=== PATIENT | male | born 1995 | race Caucasian/White ===

== ENCOUNTER 2025-07-02 19:23 | Emergency (ER) | payer OTHER, SELFPAY ==
[2025-07-02 19:35] VITALS: BP 129/90
[2025-07-02 20:10] LABS: Hematocrit 43.0 % (39.0-52.0); Hemoglobin 14.2 g/dL (13.0-18.0); Mean Corp Hgb Conc. 33.0 g/dL (33.0-37.0); Mean Corpuscular Volume 90.3 fL (80.0-94.0); Nucleated Red Blood Cells % 0 % (-); Platelet Count 252 10^3/uL (130-400); Red Cell Dist. Width 11.9 % (11.5-14.5)
[2025-07-02 20:24] LABS: ALT (SGPT) 20 U/L (0-50); AST (SGOT) 22 U/L (17-59); Albumin 4.5 g/dl (3.5-5.0); Alkaline Phosphatase 62 U/L (38-126); Blood Urea Nitrogen 13 mg/dl (9-20); Calcium 9.4 mg/dl (8.4-10.2); Carbon Dioxide 27 mmol/L (22-30); Chloride 106 mmol/L (98-107); Glucose 95 mg/dl (70-99); Potassium 4.0 mmol/L (3.5-5.1); Sodium 139 mmol/L (135-145); Total Protein 7.7 g/dl (6.3-8.2); eGFR > 60.00
[2025-07-02 20:35] LABS: Troponin I < 0.012 ng/ml
[2025-07-02 21:36] VITALS: BP 132/77
--- NOTE | 2025-07-02 23:02 | ED.GENMED ---
History of Present Illness
General
Chief Complaint: Dizziness
Source: patient
Exam Limitations: none
Time Seen by Provider: 07/02/25 21:53
Nursing documentation reviewed up to this point in time: agreed with
History of Present Illness
History of Present Illness:
Patient to emergency department with complaint of dizziness. Symptoms started approximately 2-1/2 weeks ago. States the dizziness has slowly improved but is still present. He was seen last week at urgent care and states his ears were flushed to
remove wax. He states he saw no improvement in his dizziness with that procedure. He denies fever chills nausea vomiting diarrhea no headache no vision changes. No prior history of same. Brought self to the emergency department for evaluation.
Past History
Past History
ED Past Medical History: None
ED Past Surgical History: None
Social History
Tobacco: Former smoker
Alcohol: None
Drug: None
Personal: Single
Living: with family
Employment: Not employed
Family History
Family History: Other (Noncontributory)
Review of Systems
Review of Systems
Allergies reviewed?: Yes
All Other Systems: ROS reviewed and negative except as documented in HPI and ROS
Constitutional: Reports no symptoms
EENT: Reports no symptoms
Respiratory: Reports no symptoms
Cardiac: Reports no symptoms
ABD/GI: Reports no symptoms
: Reports no symptoms
Musculoskeletal: Reports no symptoms
Skin: Reports no symptoms
Neurological: Reports dizzy
Psychiatric: Reports no symptoms
Phy Exam
General Physical Exam
General Presentation: well appearing and mild distress
General age: appears stated age
General Skin: warm and dry
General Habitus: normal
General Mental: alert
ENT Exam
ENT Exam: EOMI, neck supple and TM's abnormal (effusion noted bilaterally)
Eye Exam
Eye Exam: PERRL, EOMI, conjunctiva normal and globe normal
Neurological Exam
Neurological Exam: alert, oriented x3, CN II-XII intact, no motor deficits, no sensory deficits, speech normal and normal gait
[place] Coma Scale
Eye Opening: Spontaneous
Verbal Response: Oriented
Motor Response: Obeys Commands
GCS Total Score: 15
Mental
Mental Status: oriented to person, oriented to place, oriented to time and usual mental status
Describe Speech: normal speech
Cranial
Cranial Nerves: normal and no facial asymetry
Motor
Seizure Activity: none
Gait: normal
Tremors: none
Other Movement Disorders: none
Right upper extremity: 4
Right lower extremity: 4
Left upper extremity: 4
Left lower extremity: 4
Bilateral upper extremities: 4
Bilateral lower extremities: 4
Sensory
Sensory Exam: intact
Cerebellar
Cerebellar Function: normal finger to nose, normal heel to barfield and normal Romberg test
Musculoskeletal Exam
Musculoskeletal Exam: full ROM and neuro vasc intact
Skin Exam
Skin Exam: normal color, warm/dry and no rash
Psychiatric Exam
Psychiatric Exam: normal mood/affect
Course
Orders/Labs/Results
Orders:
Orders
07/02/25 19:39
Electrocardiogram (*1) Urgent
Reason for Study: Chest Pain
EKG- Treatment ONCE
07/02/25 19:56
Complete Blood Count/With Diff Urgent
Comprehensive Metabolic Panel Urgent
Troponin I Urgent
07/02/25 22:11
CT Head W/o Iv Contrast Urgent
Comment:
Reason For Exam: dizziness, confusion
07/02/25 22:48
Amoxicillin 875 mg/Clav 125 mg [Augmentin 875 mg/125 mg] 1 tablet PO NOW STA
Prednisone [Deltasone] 40 mg PO NOW STA
Abnormal Lab Results
07/02/25
19:56
MPV 10.6 H fL
(7.4-10.4)
07/02/25 19:56
07/02/25 19:56
Vital Signs
Initial and Last Documented VS:
Initial Vital Signs
Temp Pulse Resp BP Pulse Ox
98.2 F 79 16 129/90 99
07/02/25 19:35 07/02/25 19:35 07/02/25 19:35 07/02/25 19:35 07/02/25 19:35
Last Documented Vital Signs
Temp Pulse Resp BP Pulse Ox
98.2 F 67 16 132/77 100
07/02/25 19:35 07/02/25 21:36 07/02/25 21:36 07/02/25 21:36 07/02/25 21:36
*Pulse Oximetry
SaO2: 100
Oxygen Mode of Delivery: Room air
Patient hypoxic: no
*Critical Care Note
Total Time (30-74mins, 75-104mins- exclusive of procedures): Not Applicable
Update Note
Update Note:
Patient was seen in the emergency department with report of dizziness. No associated fever chills nausea vomiting vision changes. Labs reviewed no concerning findings. CT of head negative for acute finding. On exam effusion is noted behind TM
bilaterally. Will place on a course of antibiotic and oral steroid. He was given the number for ENT and will follow-up if his symptoms do not improve with current treatment. He was given instructions on signs and symptoms to return to the
emergency department and he is agreeable to plan.
ED Attending Note
-
Portions of this chart may have been created with voice recognition software.� Occasional wrong word or��sound alike� substitutions may have occurred due to the inherent limitations of voice recognition software.
Discharge Plan
Departure
Patient Disposition: Home (Routine Discharge)
Date of Disposition: 07/02/25
Time of Disposition: 22:48
Patient with high blood pressure during this ER visit?: No
Condition: Good
Covid-19: Not Applicable
Discharge Problem:
OME (otitis media with effusion)
Instructions: Ear infections in adults
Prescriptions:
New
amoxicillin-pot clavulanate 875-125 mg tablet
1 tab PO BID Qty: 14 0RF
prednisone 10 mg Tablet
See Rx Instructions .ROUTE .COMPLEX Qty: 30 0RF
Rx Instructions:
Take By Mouth:
40 mg daily x3 days, 30 mg daily x3 days,
20 mg daily x3 days, 10 mg daily x3 days.
triamcinolone acetonide [Nasacort] 55 mcg aerosol,spray
1 spray intranasal DAILY Qty: 16.9 0RF
Referrals:
Marielena Walters CRNP [Family Provider, Internal Medicine]
Iliana العلي MD [Active, Otology]
Referral Note: Follow up if your symptoms do not improve over the next week.
Interventions
Interventions:
*Risk Screen - Suicide Last Done: 07/02/25 19:35
*General Assessment Last Done: 07/02/25 21:32
*Neglect/Abuse Screening Last Done: 07/02/25 19:35
*ED- Fall Risk Assessment Last Done: 07/02/25 21:32
*ED COVID-19 Vaccine History Last Done: 07/02/25 21:32
*ED Influenza Vaccine History Last Done: 07/02/25 21:32
ED- Neurological Assessment Last Done: 07/02/25 21:32
Discharge Date and Time
Print Language: TRINIDADIAN
[2025-07-02] MEDS: DELTASONE 40 MG PO (23:40)
[2025-07-02] MEDS: AUGMENTIN 875 MG/125 MG 1 TABLET PO (23:40)
[2025-07-02 23:43] VITALS: BP 112/81
== END 2025-07-02 23:44 | disposition home or self-care (01) ==
LOC: EMR 19:23
PROVIDERS: Emergency Medicine; EMERGENCY PHYSICIAN Emergency Medicine; FAMILY PHYSICIAN Nurse Practitioner Primary Care
DX: H65.93 Unspecified nonsuppurative otitis media, bilateral (principal); Z87.891 Personal history of nicotine dependence
CPT/HCPCS: 99284; 70450; 80053; 84484; 85025; 93005

== ENCOUNTER → 2025-08-18 12:14 | Outpatient (REF) | payer OTHER, SELFPAY ==
[2025-08-18 12:56] LABS: Hematocrit 42.9 % (39.0-52.0); Hemoglobin 14.1 g/dL (13.0-18.0); Mean Corp Hgb Conc. 32.9 g/dL (33.0-37.0); Mean Corpuscular Volume 92.9 fL (80.0-94.0); Nucleated Red Blood Cells % 0 % (-); Platelet Count 263 10^3/uL (130-400); Red Cell Dist. Width 12.6 % (11.5-14.5)
[2025-08-18 13:26] LABS: ALT (SGPT) 26 U/L (0-50); AST (SGOT) 23 U/L (17-59); Albumin 4.2 g/dl (3.5-5.0); Alkaline Phosphatase 57 U/L (38-126); Blood Urea Nitrogen 17 mg/dl (9-20); Calcium 9.5 mg/dl (8.4-10.2); Carbon Dioxide 30 mmol/L (22-30); Chloride 102 mmol/L (98-107); Glucose 96 mg/dl (70-99); HDL Cholesterol 56 mg/dl; LDL Cholesterol, Calculated 181 mg/dl; Potassium 4.7 mmol/L (3.5-5.1); Sodium 136 mmol/L (135-145); Total Protein 7.4 g/dl (6.3-8.2); Very Low Density Lipoprotein 32 mg/dl (0-30); eGFR > 60.00
[2025-08-18 13:42] LABS: Vitamin D, 25-OH*** 19.9 ng/mL (30-80)
[2025-08-20 13:32] LABS: Lyme Antibody Screen, EIA Negative (Negative)
== END ==
LOC: REG 12:14
PROVIDERS: ATTENDING PHYSICIAN Nurse Practitioner Primary Care
DX: E78.2 Mixed hyperlipidemia (principal); Z00.00 Encounter for general adult medical examination without abnormal findings; R42 Dizziness and giddiness
CPT/HCPCS: 36415; 80053; 80061; 82306; 84443; 85025; 86618